=== PATIENT | female | born 1945 | race Caucasian/White ===

== ENCOUNTER 2016-10-25 04:29 | Emergency (ER) | payer OTHER, BC ==
[2016-10-25 04:37] VITALS: PULSE 67; TEMP 97.8; BMI 24.3
[2016-10-25 05:05] VITALS: BP 158/85
[2016-10-25 05:45] LABS: EOSINOPHIL 3.3 % (0-4.5); MCH 29.6 pg (25.7-33.7); MCHC 33.2 g/dl (32.0-36.0); MEAN CELL VOLUME 89.1 fl (80-96); MEAN PLT VOLUME 8.2 fl (7.5-11.1); NEUTROPHILS 61.2 % (42.8-82.8); PLATELET COUNT 224 K/MM3 (134-434); WHITE BLOOD COUNT 7.2 K/mm3 (4.0-10.0)
--- NOTE | 2016-10-25 06:40 | PDOC ---
History of Present Illness - General Chief Complaint: Chest Pain Stated Complaint: CHEST PAIN - History of Present Illness Initial Comments: 10/25/16 06:33 after going to sleep at 4am (typical for her), developed CP, substernal, squeezing, radiating to neck and LUE. No similar prior pain. Slight residual in ED. Squeezing. No previous cardiac slaughter. Cardiac rfs: only age PE risk factors: non identified no f/c no n/v no LE edema states increased stress at home secondary to caring for her debilitated who just cam home from rehab [facility]: denies fhx: noncotnrib ros: reviewed and otherwise negative Past History - Past Medical History Allergies/Adverse Reactions: Allergies Allergy/AdvReac Type Severity Reaction Status Date / Time No Known Allergies Allergy Verified 10/25/16 04:31 Home Medications: Ambulatory Orders Levothyroxine [Synthroid -] 12.5 mcg PO DAILY 08/13/14 Thyroid Disease: Yes - Psycho/Social/Smoking Cessation Hx Anxiety: No Suicidal Ideation: No Smoking History: Never smoked Have you smoked in the past 12 months: No Information on smoking cessation initiated: No Hx Alcohol Use: No Drug/Substance Use Hx: No Substance Use Type: None *Physical Exam - Vital Signs Last Vital Signs Temp Pulse Resp BP Pulse Ox 97.8 F 67 16 158/85 99 10/25/16 04:34 10/25/16 04:34 10/25/16 04:34 10/25/16 05:04 10/25/16 04:34 - Physical Exam General Appearance: Yes: Nourished, Appropriately Dressed HEENT: positive: Normal Voice. negative: Scleral Icterus (R), Scleral Icterus ( L) Neck: negative: Tender Respiratory/Chest: positive: Lungs Clear, Normal Breath Sounds. negative: Chest Tender Cardiovascular: positive: Regular Rhythm Gastrointestinal/Abdominal: positive: Normal Bowel Sounds. negative: Tender Musculoskeletal: positive: Normal Inspection. negative: Decreased Range of Motion Extremity: positive: Normal Capillary Refill, Normal Inspection Integumentary: positive: Normal Color Neurologic: positive: Fully Oriented ED Treatment Course - LABORATORY CBC & Chemistry Diagram: 10/25/16 05:01 - ADDITIONAL ORDERS Additional order review: 10/25/16 05:01 RBC 4.47 MCV 89.1 MCHC 33.2 RDW 13.0 MPV 8.2 Neutrophils % 61.2 Lymphocytes % 26.1 Monocytes % 8.4 Eosinophils % 3.3 Basophils % 1.0 Medical Decision Making - Medical Decision Making 10/25/16 06:37 EKG: sinus at 67, nl axis nl intervals no ischemic findings A/P HEart 3 chest pain, mostly driven by age with normal EKG recommended serial enzymes, CXR, observation on monitor patient refused and left AMA. May return for 6 hour troponin phone # [phone] *DC/Admit/Observation/Transfer Diagnosis at time of Disposition: Chest pain - Discharge Dispostion Disposition: AGAINST MEDICAL ADVICE Condition at time of disposition: Stable - Referrals Referrals: Eusebio Cardoso MD [Primary Care Provider] - - Patient Instructions - Post Discharge Activity
[2016-10-25 06:58] LABS: ALBUMIN 3.9 g/dl (3.4-5.0); ANION GAP 9 (8-16); BILIRUBIN,TOTAL 0.3 mg/dL (0.2-1.0); CO2 29 mmol/L (21-32); GLUCOSE,RANDOM 103 mg/dL (74-106); SGOT/AST 22 U/L (15-37); SGPT/ALT 25 U/L (12-78); TOT PROT 6.9 g/dl (6.4-8.2)
[2016-10-25 07:01] LABS: ALK PHOS 87 U/L (45-117); TROPONIN I < 0.02 ng/ml (0.00-0.05)
--- NOTE | 2016-10-25 13:02 | EKG ---
Test Reason : Blood Pressure : / mmHG Vent. Rate : 067 BPM Atrial Rate : 067 BPM P-R Int : 172 ms QRS Dur : 088 ms QT Int : 404 ms P-R-T Axes : 063 030 063 degrees QTc Int : 426 ms NORMAL SINUS RHYTHM NORMAL ECG NO PREVIOUS ECGS AVAILABLE Confirmed by PRADIP AUSTIN MD ([id number] on 10/25/2016 1:02:17 PM Referred By: MD WELSH Confirmed By:PRADIP AUSTIN MD
== END 2016-10-25 05:04 | disposition left against medical advice (07) ==
LOC: FER 04:29
DX: R07.9 Chest pain, unspecified (principal); E07.9 Disorder of thyroid, unspecified
CPT/HCPCS: 36415; 80053; 82550; 84484; 85025; 93005; 93010; 99281-25; 99282-25

== ENCOUNTER 2018-02-28 17:21 | Emergency (ER) | payer OTHER, BC ==
[2018-02-28] MEDS ORDERED: FAMOTIDINE 20 MG/50 ML IVPB 20 MG/50 ML MG IVPB ONE (17:23)
[2018-02-28] MEDS ORDERED: SODIUM CHLORIDE 1,000 ML IV STA (17:23)
[2018-02-28] MEDS ORDERED: methylPREDNISolone NA SUCC 125 MG/2 ML VIAL IVPB ONE (17:23)
--- NOTE | 2018-02-28 17:36 | PDOC ---
History of Present Illness - General Chief Complaint: Allergic Reaction Stated Complaint: ALLERGIC REACTION Time Seen by Provider: 02/28/18 17:23 History Source: Patient Exam Limitations: No Limitations - History of Present Illness Initial Comments: 02/28/18 17:36 Ms Maycol Keen Is a 72-year-old female with a history of recurrent ALLERGIES who presents emergency department with a complaint of ALLERGIC reaction. Briefly she has a history of ALLERGIES to mold, weed, pollen, cats. She currently undergoes allergy injections at her ENTs office in [place] She had her injections today and on her ride home, she developed chest tightness and wheezing. No nausea, no vomiting. No urticarial lesions. She previously had a similar but worse reaction. Patient did not take any Benadryl prior to arrival to the ER. She denies any other inciting event-no lotions, new detergents, no soaps, no new foods. PMH: Hypothyroidism PSH: Denies Meds: Levothyroxine ALL: NKDA, Mold, weed, pollen, ? Cats Social: Denies drug or cigarette use FH: non contributory GENERAL/CONSTITUTIONAL: No: fever, chills, weakness, loss of appetite. HEAD, EYES, EARS, NOSE AND THROAT: No: change in vision, ear pain, discharge, sore throat, throat swelling. CARDIOVASCULAR: No: chest pain, lightheadedness, palpitations, syncope RESPIRATORY: Yes: wheezing, shortness of breath, chest tightness No: cough, wheezing, hemoptysis, stridor. GASTROINTESTINAL: No: nausea, vomiting, diarrhea, abdominal pain GENITOURINARY: No: dysuria, hematuria, frequency, urgency, flank pain. MUSCULOSKELETAL: No: back pain, neck pain, joint pain, muscle swelling or pain SKIN AND BREASTS: No: lesions, pallor, rash or easy bruising. NEUROLOGIC: No: headache, vertigo, paresthesias, weakness ENDOCRINE: No: unexplained weight gain or loss HEMATOLOGIC/LYMPHATIC: No: anemia, easy bleeding, swelling nodes. GENERAL: The patient is in no acute distress, speaking in clear and complete sentences, voice slightly raspy. HEAD: Normal EYES: PERRLA, EOMI, sclera anicteric, conjunctiva clear. ENT: Ears normal, nares patent, oropharynx clear without exudates. Moist mucous membranes. UVULA MIDLINE, NO EDEMA NECK: Normal range of motion, supple LUNGS: Breath sounds equal, rhoncherous breath sounds, no wheezing HEART:Regular rate and rhythm, normal S1 and S2 without murmur, rub or gallop. ABDOMEN: Soft, nontender, normoactive bowel sounds. No guarding, no rebound. EXTREMITIES: Normal range of motion NEUROLOGICAL: Cranial nerves II through XII grossly intact. Normal speech. No focal neurological deficits. MUSCULOSKELETAL: Back non-tender to palpation, no CVA tenderness SKIN: NO URTICARIAL RASH 02/28/18 17:59 Past History - Past Medical History Allergies/Adverse Reactions: Allergies Allergy/AdvReac Type Severity Reaction Status Date / Time mold Allergy Verified 02/28/18 17:22 weed pollen Allergy Verified 02/28/18 17:22 CATS Allergy Uncoded 02/28/18 17:22 Home Medications: Ambulatory Orders Levothyroxine [Synthroid -] 75 mcg PO DAILY 08/13/14 Diphenhydramine [Benadryl -] 50 mg PO Q8H PRN #30 capsule 02/28/18 Ranitidine HCl [Zantac] 150 mg PO DAILY PRN #30 tablet 02/28/18 predniSONE [Deltasone -] 60 mg PO DAILY #12 tablet 02/28/18 COPD: No DVT: No Thyroid Disease: Yes - Surgical History Abdominal Surgery: Yes - Suicide/Smoking/Psychosocial Hx Smoking History: Never smoked Have you smoked in the past 12 months: No Hx Alcohol Use: No Drug/Substance Use Hx: No Substance Use Type: None *Physical Exam - Vital Signs Last Vital Signs Temp Pulse Resp BP Pulse Ox 98.2 F 73 20 149/86 100 02/28/18 17:22 02/28/18 17:22 02/28/18 17:22 02/28/18 17:22 02/28/18 17:22 ED Treatment Course - Medications Given in the ED: ED Medications Discontinued Medications Generic Name Dose Route Start Last Admin Trade Name Freq PRN Reason Stop Dose Admin Diphenhydramine HCl 25 mg 02/28/18 17:23 02/28/18 17:31 Benadryl Injection - IVPB 02/28/18 17:24 25 mg ONCE ONE Administration Medical Decision Making - Medical Decision Making 02/28/18 18:03 Patient is presenting to emergency department with an ALLERGIC reaction. IV placed immediately. Benadryl, Solu-Medrol, Pepcid given. Patient states symptoms slightly worsened but now she is beginning to feel better. I do not see an indication at this moment for epinephrine. Will monitor her closely. Will do basic labs 02/28/18 19:05 Pt refused labs Pt would like to go home States she feels better Clinical Impression: allergic reaction, initial presentation *DC/Admit/Observation/Transfer Diagnosis at time of Disposition: Allergic reaction Qualifiers: Encounter type: initial encounter Qualified Code(s): T78.40XA - Allergy, unspecified, initial encounter - Discharge Dispostion Disposition: HOME Condition at time of disposition: Stable Decision to Admit order: No - Referrals - Patient Instructions Printed Discharge Instructions: DI for General Allergic Reactions Additional Instructions: Ms Severino Leonila Thank you for coming in to the ER today Please take medications as prescribed Please be sure to follow up with your [employer] Return IMMEDIATELY for recurrent symptoms - Post Discharge Activity
[2018-02-28] MEDS ORDERED: ALBUTEROL SO4 0.083% IH SOL 2.5 MG/3 ML VIAL.NEB. NEB ONE ×2 (17:57→18:07)
[2018-02-28 18:15] VITALS: TEMP 98.2; BMI 23.3
[2018-02-28 19:11] VITALS: BP 147/74; PULSE 79
== END 2018-02-28 19:12 | disposition home or self-care (01) ==
LOC: FER 17:21
PROC: 3E033GC Introduction of Other Therapeutic Substance into Peripheral Vein, Percutaneous Approach (ICD-10-PCS; principal; 2018-02-28)
PROC: 3E0F7GC Introduction of Other Therapeutic Substance into Respiratory Tract, Via Natural or Artificial Opening (ICD-10-PCS; 2018-02-28)
PROC: 3E0337Z Introduction of Electrolytic and Water Balance Substance into Peripheral Vein, Percutaneous Approach (ICD-10-PCS; 2018-02-28)
DX: T78.40XA Allergy, unspecified, initial encounter (principal)
CPT/HCPCS: 99282-25; J7030

== ENCOUNTER 2018-08-23 14:23 | Emergency (ER) | payer OTHER, BC ==
--- NOTE | 2018-08-23 14:38 | PDOC ---
History of Present Illness - General Chief Complaint: Nausea/Vomiting Stated Complaint: VOMITING Time Seen by Provider: 08/23/18 14:27 History Source: Patient, Family (Adult daughter at bedside), Old Records Exam Limitations: No Limitations - History of Present Illness Initial Comments: HPI: 73 y/o female BIBEMS to ER complaining of vomiting, diffuse left sided abdominal pain, and malaise since last evening. Pt states she has vomited four times without noting blood or bile. Denies intense retching. Last episode was at 08:30 this AM. Abdominal pain is on the left side of the abdomen without radiation to flank, back, chest, or groin. Denies diarrhea. Last BM was yesterday evening and described as normal. Lives at home with adult daughter, who is at bedside and reports experiencing similar symptoms. Pt endorses decreased PO intake because she is, scared to drinking anything. Has not trialed any OTC medications. PCP: Social Hx: - Retired Medical Hx: - Prediabetic - Meniere's disease with hearing loss - Graves disease - S/p thyroidectomy on levothyroxine - S/p resection of abdominal schwannoma - S/p R ACL repair Past History - Past Medical History Allergies/Adverse Reactions: Allergies Allergy/AdvReac Type Severity Reaction Status Date / Time mold Allergy Verified 08/23/18 14:28 weed pollen Allergy Verified 08/23/18 14:28 CATS Allergy Uncoded 08/23/18 14:28 Home Medications: Ambulatory Orders Levothyroxine [Synthroid -] 75 mcg PO DAILY 08/13/14 Ondansetron [Zofran -] 4 mg PO Q8H #10 tablet 08/23/18 COPD: No DVT: No Thyroid Disease: Yes - Surgical History Abdominal Surgery: Yes - Suicide/Smoking/Psychosocial Hx Smoking History: Never smoked Have you smoked in the past 12 months: No Information on smoking cessation initiated: No Hx Alcohol Use: No Drug/Substance Use Hx: No Substance Use Type: None Review of Systems - Review of Systems Able to Perform ROS?: Yes Comments:: In addition to that documented in the HPI above, the additional ROS was obtained : Constitutional: Endorses chills. Denies fevers. Head: Denies headache, vision or hearing changes ENMT: Feels parched. Denies sore throat or difficulty swallowing CV: Denies chest pain Resp: Denies SOB GI: Per HPI : Denies painful urination, hematuria, increased urinary frequency, or vaginal discharge MSK: Denies recent trauma Skin: Denies new rashes Neuro: Denies new numbness or tingling or weakness Endocrine: Denies polyuria Heme: Denies bleeding or bruising *Physical Exam - Vital Signs Last Vital Signs Temp Pulse Resp BP Pulse Ox 98.8 F 84 20 152/80 97 08/23/18 14:24 08/23/18 14:24 08/23/18 14:24 08/23/18 14:24 08/23/18 14:24 - Physical Exam Comments: Constitutional: Well-developed, well-nourished adult female in no acute distress or obvious discomfort. Found semi-fowlers on hospital bed. Alert and oriented x4. Answered all questions appropriately and completely. Speech was non -labored, non-pressured. Head: Normocephalic. No obvious external signs of trauma. Eyes: Sclerae white. Conjunctiva moist and not injected. Ears: Hearing grossly intact. Nose: No nasal discharge. Throat: Oral cavity and pharynx normal. No inflammation, swelling, exudate, or lesions. Moist mucosal membrane. Neck: Supple, trachea is midline. Cardiovascular / Chest: Regular rate and regular rhythm. No murmur, rubs, clicks, or gallops. Peripheral pulses: radial pulses full. Respiratory: Breathing unlabored. Equal chest rise and fall. Clear to auscultation bilaterally. No stridor, no wheezing, no rhonchi. Gastrointestinal: abdomen is soft, non-tender, non-distended. No peritoneal signs. No pulsatile masses. No overlying skin lesions or obvious signs of trauma. Post surgical scar to midline of abdomen. Neuro: Alert and oriented. Moving all four extremities spontaneously.No nuchal rigidity. Skin: Warm, dry, and intact. Psych: Affect: appropriate. Mood: normal. Moderate Sedation - Procedure Monitoring Vital Signs: Procedure Monitoring Vital Signs Temperature 98.8 F 08/23/18 14:24 Pulse Rate 84 08/23/18 14:24 Respiratory Rate 20 08/23/18 14:24 Blood Pressure 152/80 08/23/18 14:24 O2 Sat by Pulse Oximetry (%) 97 08/23/18 14:24 ED Treatment Course - LABORATORY CBC & Chemistry Diagram: 08/23/18 15:16 08/23/18 15:16 - Medications Given in the ED: ED Medications Discontinued Medications Generic Name Dose Route Start Last Admin Trade Name Cristal PRN Reason Stop Dose Admin Lactated Ringer's 1,000 ml 08/23/18 14:55 08/23/18 15:16 Lactated Ringers Solution IV 08/23/18 14:56 1,000 ml ONCE ONE Administration Ondansetron HCl 4 mg 08/23/18 14:55 08/23/18 15:16 Zofran Injection IVPUSH 08/23/18 14:56 4 mg ONCE ONE Administration Medical Decision Making - Medical Decision Making *Reviewed vital signs, nursing notes, and prior visit documentation (if available). 73 y/o female complaining of nausea/vomiting, abdominal pain, and malaise. Afebrile. Vitals unremarkable for hypotension or tachycardia. Physical exam as noted above. No peritoneal signs. Suspect viral gastritis given short duration of symptoms and another member of household with similar. Low suspicion for intracranial or intra-abdominal process. No peritoneal signs. Will obtain CBC and BMP. Ordered Zofran and IVFB for symptom relief. CBC unremarkable for leukocytosis or anemia. BMP revealed borderline hypokalemia, suspect secondary to vomiting. Will not replace at this time. BGL mildly elevated and consistent with h/o of prediabetes. BUN mildly elevated. Suspect secondary to mild hypovolemia. Already receiving IVFB. Will encourage pt to increase PO intake. Pt reassessed. States she feels much better. No further vomiting. Drank water without difficulty. Repeat abdominal exam remains unchanged. No peritoneal signs. Will prescribe prescription for Zofran for further symptom relief as needed. Discussed imaging and laboratory results with pt. Answered all questions. Provided return precautions. Pt expressed verbal understanding and agreement with plan to discharge home with outpatient follow up. *DC/Admit/Observation/Transfer Diagnosis at time of Disposition: Left sided abdominal pain Nausea & vomiting Qualifiers: Vomiting type: unspecified Vomiting Intractability: non-intractable Qualified Code(s): R11.2 - Nausea with vomiting, unspecified - Discharge Dispostion Disposition: HOME Condition at time of disposition: Good Decision to Admit order: No - Prescriptions Prescriptions: Ondansetron [Zofran -] 4 mg PO Q8H #10 tablet - Referrals - Patient Instructions Printed Discharge Instructions: DI for Vomiting -- Adult Additional Instructions: You were seen today for vomiting, abdominal pain, and malaise. Your symptoms are likely because of a viral gastritis (stomach bug), and will go away with time. Please continue to drink fluids (water, Gatorade, etc) to stay hydrated. You can try and eat a small bland meal (crackers, etc) after you have stopped vomiting for 12 hours. I have sent a prescription for Zofran to your pharmacy. Take as directed on the package insert. Do not take more than the recommended dose. Return to the emergency room if your vomiting becomes much worse and you are no longer able to keep fluids down, if you begin to feel dehydrated, if you develop a fever, pass out, become disoriented, begin vomiting blood, have bloody diarrhea, or you feel like you need additional emergency care. You can also see your primary care doctor if your symptoms do not improve. Print Language: WOLOF - Post Discharge Activity
[2018-08-23 14:49] VITALS: BP 152/80; PULSE 84; TEMP 98.8; BMI 24.3
--- NOTE | 2018-08-23 14:50 | PDOC ---
Attending Attestation - Resident Resident Name: Harley - ED Attending Attestation I have performed the following: I have examined & evaluated the patient, The case was reviewed & discussed with the resident, I agree w/resident's findings & plan, Exceptions are as noted - HPI HPI: 08/23/18 15:22 Nausea, vomiting 4, no blood or bile, since last night. Daughter, with whom she lives, with similar symptoms. They were both in a healthcare facility on Tuesday, but no other known exposures. Last bowel movement last night, normal. Occasional crampy abdominal pain but no persistent abdominal discomfort. No dizziness, chest pain, shortness of breath, urinary tract symptoms, or vaginal bleeding or discharge - Physicial Exam PE: 08/23/18 15:24 Physical exam: Alert, cheerful and cooperative, no acute distress Afebrile, vital signs normal. Appears adequately hydrated with wet mucous membranes and good skin turgor Chest and CV exam is normal Abdomen nondistended. Bowel sounds normal. Soft without mass tenderness organomegaly. - Medical Decision Making 08/23/18 15:29 08/23/18 15:34 Assessment: Viral gastroenteritis, similar illness in household. No acute abdominal pain and no examination findings of acute intra-abdominal process. Plan: IV hydration, antiemetic, labs and further evaluation depending on results. And depending on response to therapy. 08/23/18 16:11 CBC and chemistries without significant abnormalities. Patient is feeling well, nausea has resolved, no further vomiting, no abdominal pain. Discharged fully ambulatory and in no distress to follow-up as directed.
[2018-08-23] MEDS ORDERED: LACTATED RINGERS SOLUTION 1000 ML INFUS.BAG IV ONE (14:55)
[2018-08-23] MEDS ORDERED: ONDANSETRON 4 MG/2 ML VIAL IVPUSH ONE (14:55)
[2018-08-23] MEDS ORDERED: ONDANSETRON 4 MG/2 ML VIAL ONE (15:18)
[2018-08-23 15:32] LABS: HEMOGLOBIN 13.7 GM/dl (10.7-15.3); MCH 30.4 pg (25.7-33.7); MCHC 34.3 g/dl (32.0-36.0); MEAN CELL VOLUME 88.6 fl (80-96); MEAN PLT VOLUME 8.4 fl (7.5-11.1); PLATELET COUNT 196 K/MM3 (134-434); RBC 4.51 M/mm3 (3.60-5.2); RDW 11.7 % (11.6-15.6); WHITE BLOOD COUNT 9.6 K/mm3 (4.0-10.8)
[2018-08-23 15:45] LABS: ANION GAP 7 MMOL/L (8-16); BLOOD UREA NITROGEN 19 mg/dl (7-18); CALCIUM 8.7 mg/dl (8.5-10); CHLORIDE 105 mmol/L (98-107); CO2 26 mmol/L (21-32); CREATININE 0.7 mg/dl (0.55-1.3); GLUCOSE,RANDOM 116 mg/dl (74-106); POTASSIUM 3.4 mmol/L (3.5-5.1); SODIUM 138 mmol/L (136-145)
[2018-08-23 16:22] LABS: PLATELET ESTIMATE ADEQUATE
== END 2018-08-23 16:30 | disposition home or self-care (01) ==
LOC: FER 14:23
PROC: 3E033GC Introduction of Other Therapeutic Substance into Peripheral Vein, Percutaneous Approach (ICD-10-PCS; principal; 2018-08-23)
PROC: 3E0337Z Introduction of Electrolytic and Water Balance Substance into Peripheral Vein, Percutaneous Approach (ICD-10-PCS; 2018-08-23)
DX: R10.32 Left lower quadrant pain (principal); R10.9 Unspecified abdominal pain; R11.2 Nausea with vomiting, unspecified
CPT/HCPCS: 36415; 80048; 85025; 96361; 96374; 99282-25

== ENCOUNTER 2020-11-20 22:50 | Inpatient (IN) | payer OTHER, BC ==
[2020-11-21] MEDS ORDERED: morphine CARPU-JECT 2 MG/1 ML DISP.SYRIN IVPUSH ONE (00:07)
[2020-11-21] MEDS ORDERED: morphine SULFATE 4 MG/ML VIAL ONE ×2 (00:16→04:10)
[2020-11-21] MEDS ORDERED: DEXTROSE 5%-0.45% SALINE 1,000 ML IV SCH ×3 (00:45→13:39)
[2020-11-21] MEDS ORDERED: ACETAMINOPHEN 1000 MG/100 ML VIAL (NON FORMULARY) IVPB ONE ×2 (00:45→06:28)
[2020-11-21] MEDS ORDERED: ACETAMINOPHEN INJECTION 100 ML IVPB ONE (00:49)
[2020-11-21 00:55] LABS: BASO % 0.5 % (0-2.0); HEMOGLOBIN 13.8 GM/dL (10.7-15.3); LYMPH % 15.2 % (8-40); MCH 30.7 pg (25.7-33.7); MCHC 34.5 g/dl (32.0-36.0); MEAN PLT VOLUME 8.5 fl (7.5-11.1); MONO % 4.3 % (3.8-10.2); PLATELET COUNT 193 K/MM3 (134-434); RDW 12.4 % (11.6-15.6); WHITE BLOOD COUNT 8.6 K/mm3 (4.0-10.0)
[2020-11-21] MEDS ORDERED: SODIUM CHLORIDE 1,000 ML IV SCH (01:00)
[2020-11-21 01:03] LABS: PH,URINE 7.5 (5.0-8.0); URINE APPEARANCE CLEAR; URINE BILIRUBIN NEGATIVE (NEGATIVE); URINE COLOR YELLOW; URINE GLUCOSE (UA) NEGATIVE (NEGATIVE); URINE KETONE 1+ (NEGATIVE); URINE LEUK ESTERASE NEGATIVE (NEGATIVE); URINE NITRITE NEGATIVE (NEGATIVE); URINE PROTEIN NEGATIVE (NEGATIVE); URINE UROBILINOGEN 0.2 mg/dL (0.2-1.0)
[2020-11-21 01:11] LABS: INR 0.99 (0.83-1.09)
[2020-11-21 01:20] LABS: ALBUMIN 3.8 g/dl (3.4-5.0); BLOOD UREA NITROGEN 23.8 mg/dL (7-18)
[2020-11-21 01:23] LABS: CREATININE 0.8 mg/dL (0.55-1.3)
[2020-11-21 01:24] LABS: BILIRUBIN,TOTAL 0.4 mg/dL (0.2-1); TOT PROT 6.8 g/dl (6.4-8.2)
[2020-11-21] MEDS: MORPHINE SULFATE 2 MG/ML VIAL IVPUSH PRN ×4 (04:41→23:15)
[2020-11-21 04:46] VITALS: BMI 23.0
[2020-11-21] MEDS ORDERED: LEVOTHYROXINE NA 75 MCG TABLET (FP) PO SCH (10:00)
[2020-11-21] MEDS ORDERED: ONDANSETRON 4 MG/2 ML VIAL IVPUSH PRN ×2 (11:14→13:39)
[2020-11-21] MEDS ORDERED: LACTATED RINGERS SOLUTION 1,000 ML IV SCH ×2 (11:15→13:39)
[2020-11-21] MEDS ORDERED: BUPIVACAINE HCL 50 ML ONE (11:16)
[2020-11-21] MEDS ORDERED: MIDAZOLAM HCL 2 MG/2 ML SINGLE DOSE VIAL ONE (11:18)
[2020-11-21] MEDS ORDERED: PROPOFOL 20 ML ONE (11:19)
[2020-11-21] MEDS ORDERED: ACETAMINOPHEN 325 MG TABLET (FP) PO PRN (13:39)
[2020-11-21] MEDS: CEFAZOLIN 1 GM/D5W 1 GM/50 ML BAG IVPB SCH (20:50)
[2020-11-22] MEDS: oxyCODONE HCL 5 MG TABLET PO PRN ×3 (03:30→20:04)
[2020-11-22] MEDS: ACETAMINOPHEN 325 MG TABLET (FP) PO PRN ×3 (03:31→20:03)
[2020-11-22] MEDS: CEFAZOLIN 1 GM/D5W 1 GM/50 ML BAG IVPB SCH ×2 (05:12→12:26)
[2020-11-22] MEDS: LEVOTHYROXINE NA 75 MCG TABLET (FP) PO SCH (06:11)
[2020-11-22] MEDS: CHOLECALCIFEROL (VIT D3) 1,000 UNIT (25 MCG) TABLET PO SCH (10:06)
[2020-11-22] MEDS ORDERED: DOCUSATE SODIUM 100 MG CAPSULE (FP) PO PRN (11:07)
[2020-11-22] MEDS: POLYETHYLENE GLYCOL 3350 119 GM BTL PO SCH (11:45)
[2020-11-22] MEDS: ENOXAPARIN NA (PORCINE) 40 MG/0.4 ML DISP.SYRIN SQ SCH (12:26)
[2020-11-23] MEDS: oxyCODONE HCL 5 MG TABLET PO PRN ×4 (02:23→21:03)
[2020-11-23] MEDS: ACETAMINOPHEN 325 MG TABLET (FP) PO PRN ×3 (02:24→21:04)
[2020-11-23] MEDS: LEVOTHYROXINE NA 75 MCG TABLET (FP) PO SCH (06:14)
[2020-11-23] MEDS: CHOLECALCIFEROL (VIT D3) 1,000 UNIT (25 MCG) TABLET PO SCH ×2 (08:59→10:18)
[2020-11-23] MEDS: POLYETHYLENE GLYCOL 3350 119 GM BTL PO SCH (09:03)
[2020-11-23] MEDS: ENOXAPARIN NA (PORCINE) 40 MG/0.4 ML DISP.SYRIN SQ SCH (14:34)
[2020-11-24] MEDS: LEVOTHYROXINE NA 75 MCG TABLET (FP) PO SCH (06:37)
[2020-11-24] MEDS: ACETAMINOPHEN 325 MG TABLET (FP) PO PRN (07:23)
[2020-11-24] MEDS: oxyCODONE HCL 5 MG TABLET PO PRN (07:25)
[2020-11-24] MEDS: POLYETHYLENE GLYCOL 3350 119 GM BTL PO SCH (10:23)
[2020-11-24] MEDS: CHOLECALCIFEROL (VIT D3) 1,000 UNIT (25 MCG) TABLET PO SCH (10:24)
[2020-11-24] MEDS: ENOXAPARIN NA (PORCINE) 40 MG/0.4 ML DISP.SYRIN SQ SCH (12:50)
[2020-11-24 12:56] VITALS: BP 150/62; PULSE 78; TEMP 98.2
== END 2020-11-24 13:38 | disposition home or self-care (01) | DRG 482 ==
LOC: FER 22:50 → FM/S 11-21 04:04
PROVIDERS: ADMIT Hospitalist; ATTEND Nurse Practitioner Acute Care
PROC: 0QS704Z Reposition Left Upper Femur with Internal Fixation Device, Open Approach (ICD-10-PCS; principal; 2020-11-21 12:24)
DX: S72.002A Fracture of unspecified part of neck of left femur, initial encounter for closed fracture (principal); E03.9 Hypothyroidism, unspecified; W01.0XXA Fall on same level from slipping, tripping and stumbling without subsequent striking against object, initial encounter; Y93.89 Activity, other specified; Y92.096 Garden or yard of other non-institutional residence as the place of occurrence of the external cause; Y99.8 Other external cause status
CPT/HCPCS: 36415; 71045-TC-FY; 73501-TC-LT-FY; 73523-TC-FY; 80053; 81003; 82550; 84484; 85025; 85610; 86850; 86900; 86901; 93005; 94760; 97116-GP; 97162-GP; 99285-25; C9803; J0131; U0003; U0005

== ENCOUNTER 2021-09-12 20:41 | Emergency (ER) | payer OTHER, BC ==
[2021-09-12 20:49] VITALS: TEMP 98.1; BMI 23.0
[2021-09-12 21:33] LABS: BILIRUBIN,TOTAL 0.5 mg/dl (0.2-1); CALCIUM 9.4 mg/dl (8.5-10); CREATININE 0.6 mg/dl (0.55-1.3); TOT PROT 6.6 g/dl (6.4-8.2)
[2021-09-12] MEDS ORDERED: SODIUM CHLORIDE 0.9% 500 ML INFUS.BAG IV ONE (21:50)
[2021-09-12 22:08] LABS: BASO % 0.8 % (0-2.0); EOS % 1.7 % (0-4.5); HEMATOCRIT 37.4 % (32.4-45.2); HEMOGLOBIN 12.5 GM/dL (10.7-15.3); LYMPH % 22.7 % (8-40); MCH 30.3 pg (25.7-33.7); MCHC 33.3 g/dl (32.0-36.0); MEAN CELL VOLUME 90.8 fl (80-96); MEAN PLT VOLUME 8.5 fl (7.5-11.1); MONO % 6.8 % (3.8-10.2); PLATELET COUNT 216 10^3/uL (134-434); RBC 4.13 M/mm3 (3.60-5.2); RDW 13.4 % (11.6-15.6); WHITE BLOOD COUNT 7.3 K/mm3 (4.0-10.0)
[2021-09-12 22:20] LABS: EPITHELIAL CELLS RARE /hpf
[2021-09-12] MEDS ORDERED: METOPROLOL TARTRATE 50 MG TABLET (FP) PO ONE (22:26)
[2021-09-12] MEDS ORDERED: METOPROLOL TARTRATE 25 MG TABLET (FP) ONE (22:31)
[2021-09-12 22:33] VITALS: BP 150/60; PULSE 65
== END 2021-09-12 22:47 | disposition home or self-care (01) ==
LOC: FER 20:41
DX: I10 Essential (primary) hypertension (principal)
CPT/HCPCS: 36415; 71046-TC-FY; 80053; 81003; 81015; 84484; 85025; 93005; 99285-25